=== PATIENT | male | born 1955 | race Caucasian/White ===

== ENCOUNTER 2019-09-30 21:37 | Emergency (ER) | payer BC, SELFPAY | END 2019-10-01 00:20 | disposition home or self-care (01) | PROVIDERS: Emergency Provider Family Medicine; Family Provider Family Medicine; Visit Provider Family Medicine | DX: J44.1 Chronic obstructive pulmonary disease with (acute) exacerbation (principal); F17.210 Nicotine dependence, cigarettes, uncomplicated ==

== ENCOUNTER → 2022-10-16 12:30 | Outpatient (BNVA) | payer BC, SELFPAY | PROVIDERS: Family Provider Family Medicine; PCP Family Medicine; Visit Provider Family Medicine | DX: I10 Essential (primary) hypertension (principal); R35.1 Nocturia | CPT/HCPCS: 80053; 80061; 84153 ==

== ENCOUNTER 2022-12-23 08:44 | Emergency (ER) | payer MEDICARE, SELFPAY ==
[2022-12-23] VITALS (8 sets, daily range): BP systolic 117–166; BP diastolic 54–85; PULSE 86–97; RESP 16–25; TEMP 37.2; O2SAT 85–93
--- NOTE | 2022-12-23 08:54 | XRR_ITS ---
PROCEDURE INFORMATION: Exam: XR Chest Exam date and time: 12/23/2022 9:09 AM Age: 67 years old Clinical indication: Shortness of breath; Additional info: Cough shortness of breath TECHNIQUE: Imaging protocol: Radiologic exam of the chest. Views: 1 view. COMPARISON: CR XR ribs RT mn 3V w [id number] 09/30/2019 10:05 PM FINDINGS: Lungs: Lungs are clear. Pleural spaces: There is no pleural effusion or pneumothorax. Heart/Mediastinum: Cardiomediastinal contours are unremarkable. Bones/joints: Bones are unremarkable. XR/XR chest 1V portable [id number] IMPRESSION: No acute findings.
--- NOTE | 2022-12-23 08:58 | ED_ITS ---
Documented by User: MAURY Sage 12/23/22 14:15 HPI - SOB/Dyspnea General: Chief Complaint: Shortness of Breath/Dyspnea Stated Complaint: SOB, Low02 at home Time Seen by Provider: 12/23/22 08:46 History of Present Illness: HPI Narrative: Mr. Rutherford is a 67-year-old man that presents to the emergency department with c omplaints of shortness of breath and cough. Patient reports onset of symptoms 12/19/2022. Patient has been managing symptoms at home with his prescribed medications that relief. His symptoms have progressively worsened and patient reports now has been febrile. He reports clear to white sputum. He denies chest pain. Denies abdominal pain, nausea vomiting or diarrhea. History includes COPD, hypertension, daily tobacco user. He is not on home oxygen. He was checking his pulse oximeter at home and reports he had a 83% oxygen saturation this morning. Here in the emergency department it is 85% Associated symptoms: Reports chest congestion, fever(s) and orthopnea; Deny abdominal pain, chest pain, dizziness, extremity pain, nausea, palpitati ons, polydipsia, polyuria or vomiting Review of Systems 2 General: Reports: 10 or more systems reviewed and unremarkable except in HPI and below Const: Reports: fever(s), chills, change in appetite and fatigue; Denies: change in weight or malaise Eyes: Denies: change in vision, eye discomfort, eye discharge or eye redness ENMT: Denies: throat pain, enlarged tonsils, odynophagia, hoarseness, ear or mastoid pain, ear discharge, change in hearing, tinnitus, nasal discharge, nasal congestion, post nasal drip or sinus pain Card: Reports: dyspnea on exertion and orthopnea; Denies: chest pain, palpitations, irregular heart rhythm, edema, swelling of feet/ankles or leg pain with exertion Resp: Reports: dyspnea, productive cough, wheezing, change in phlegm color and chest congestion; Denies: non-productive cough or stridor GI: Denies: abdominal pain, nausea, vomiting, dysphagia, diarrhea, constipation, bloating, GI cramping or hematochezia : Denies: flank pain, dysuria, urinary frequency, urinary urgency, urinary hesitancy, oliguria or hematuria Musc: Denies: neck pain, back pain, extremity pain, joint pain, joint swelling, joint redness, joint warmth or muscle weakness Skin/Breast: Denies: rash, pruritus, erythema, photosensitivity or new lesions Neuro: Denies: headache(s), numbness in extremities, weakness in extremities, sensory changes, lack of coordination, difficulty walking, frequent falls, dizziness, confusion, Slurred speech present, difficulty communicating thoughts, seizure-like activity or involuntary movements Endo: Denies: polyuria, polydipsia or tired all the time Torres/Lymph: Denies: easy bruising or easy bleeding PFSH ED PFSH: Medical History COPD (chronic obstructive pulmonary disease) Hypertension Physical Exam Const: COMMON NORMALS: no acute distress, patient oriented x3 and alert GENERAL APPEARANCE: cooperative ORIENTATION/CONSCIOUSNESS: Yes awake, Yes oriented to person, Yes oriented to place and Yes oriented to time HENMT: COMMON NORMALS: normocephalic and atraumatic HEAD & SCALP: normocephalic and atraumatic FACE & SINUS: normal facial exam MOUTH: Normal oral and palatal mucosa present THROAT: posterior oropharynx normal Eye: COMMON NORMALS: Equal, round and reactive pupils present, EOMs intact bilaterally, conjunctivae normal and no scleral icterus GENERAL EYE: appearance normal, both eyes and all related structures ALIGNMENT: Yes alignment normal PERIORBITAL: periorbital findings normal CONJUNCTIVA: Yes conjunctivae normal PUPIL: Yes Equal, round and reactive pupils present Neck/C-Spine: COMMON NORMALS: full ROM GENERAL: Yes normal visual inspection Lymph: LYMPHATIC: no lymphadenopathy noted Chest: COMMONS NORMALS: normal inspection of the chest CHEST: Yes abnormal inspection of the chest Breast/axilla inspection: Yes no chest deformity, asymmetry, normal contours, no nodules, masses, tenderness Resp: COMMON NORMALS: normal respiratory effort, No retractions and No use of accessory muscles EFFORT & INSPECTION: Yes able to speak in complete sentences, Yes symmetric chest movement, Yes tachypneic, Yes respiratory distress and Yes prolonged expiratory phase AUSCULTATION: wheezes lower bilaterally and diminished lung sounds bilateral and diffuse Cardio: COMMON NORMALS: regular rate, regular rhythm and Peripheral pulses 2+ throughout RATE: regular rate RHYTHM: regular rhythm PERIPHERAL PULSES: Peripheral pulses 2+ throughout GI: COMMON NORMALS: Normal to inspection, nondistended, normoactive bowel sounds present, Soft to palpation, non-tender and No hepatosplenomegaly present INSPECTION: Yes normal to inspection AUSCULTATION: Yes normoactive bowel sounds PALPATION: Yes Soft to palpation and Yes No hepatosplenomegaly present RECTAL EXAM: Yes deferred Extremity: COMMON NORMALS: normal to inspection GENERAL: Yes normal exam except as noted Neuro: COMMON NORMALS: patient oriented x3 SENSORIUM/ORIENTATION: Yes alert, Yes oriented to person, Yes oriented to place and Yes oriented to time CRANIAL NERVES: Yes CN normal except as noted Psych: COMMON NORMALS: mental status grossly normal, Normal thought process present, cooperative, activity/motor behavior normal, denies homicidal ideation and denies suicidal ideation THOUGHT PROCESS: Normal thought process present Skin: COMMON NORMALS: no rashes or lesions noted, no wounds and turgor normal GENERAL SKIN EXAM: no rashes or lesions noted and turgor normal Course Vital Signs: Vital signs: Vital Signs Temperature 98.9 F 12/23/22 08:54 Pulse Rate 87 12/23/22 10:24 Respiratory Rate 16 12/23/22 10:20 Blood Pressure 117/54 12/23/22 13:25 Pulse Oximetry 91 12/23/22 13:25 Oxygen Delivery Me thod 12/23/22 13:25 Oxygen Flow Rate 3 12/23/22 13:25 MDM - SOB/Dyspnea Medical Decision Making Mr. Rutherford is in the emergency department today with complaints of shortness of breath and cough. Has a history of COPD, treated with albuterol, and hypertension, treated with amlodipine. Patient has a primary physician, Dr. Aponte but does not routinely see. Patient reports symptoms began on Saturday but have progressively worsened. States cough through most of the night. Differential diagnoses include pneumonia, COVID-pneumonia, influenza, COPD exacerbation. Laboratory studies, EKG, chest x-ray have all been ordered Respiratory therapy has been consulted for DuoNeb treatments and oxygen management He has been treated with Solu-Medrol 125 mg. EKG shows normal sinus rhythm with borderline left axis deviation. Ventricular rate 89 beats a minute without ectopy or ST elevation. Care was assumed by Dr. Benson Lab Data 12/23/22 09:00 12/23/22 09:00 Labs/Radiology: Radiology Impressions Chest X-Ray 12/23/22 08:54 IMPRESSION: No acute findings. Laboratory Results WBC 6.2 10^3/uL (4.0-10.0) 12/23/22 09:00 RBC 6.10 10^6/uL (4.1-5.3) H 12/23/22 09:00 Hgb 19.0 g/dL (11.7-16.6) H 12/23/22 09:00 Hct 57.6 % (42.0-52.0) H 12/23/22 09:00 MCV 94.4 fl (80-94) H 12/23/22 09:00 MCH 31.1 pg (28.0-34.0) 12/23/22 09:00 MCHC 33.0 g/dL (30.0-36.0) 12/23/22 09:00 RDW 12.7 % (12.1-15.1) 12/23/22 09:00 Plt Count 114 10^3/cmm (130-400) L 12/23/22 09:00 MPV 12.2 fL (7.4-10.4) H 12/23/22 09:00 Neut % (Auto) 63.7 % 12/23/22 09:00 Lymph % (Auto) 20.3 % 12/23/22 09:00 Ripley % (Auto) 14.2 % 12/23/22 09:00 Eos % (Auto) 0.5 % 12/23/22 09:00 Baso % (Auto) 1.0 % 12/23/22 09:00 Neut # (Auto) 3.96 10^3/uL (1.8-7.7) 12/23/22 09:00 Lymph # (Auto) 1.3 10^3/uL (0.8-4.8) 12/23/22 09:00 Ripley # (Auto) 0.9 10^3/uL (0.2-0.9) 12/23/22 09:00 Eos # (Auto) 0.0 10^3/uL (0.0-0.8) 12/23/22 09:00 Baso # (Auto) 0.1 10^3/uL (0.0-0.1) 12/23/22 09:00 Nucleated RBC % (auto) 0 % 12/23/22 09:00 Nucleated RBCs # 0.0 /100WBC 12/23/22 09:00 D-Dimer 0.38 ug/mIFEU (0-0.59) 12/23/22 09:00 Specimen Type Arterial 12/23/22 09:16 Sample Site Radial, left 12/23/22 09:16 ABG pH 7.38 (7.35-7.45) 12/23/22 09:16 ABG pCO2 40.6 mmHg (35-45) 12/23/22 09:16 ABG pO2 65.6 mmHg (80.0-100.0) L 12/23/22 09:16 ABG HCO3 23.9 mmol/L (22-26) 12/23/22 09:16 ABG Base Excess -1.3 mmol/L (-2.0-2.0) 12/23/22 09:16 Sean Test Pos 12/23/22 09:16 Hematocrit 55.7 % (42-52) H 12/23/22 09:16 O2 Delivery Device Nc 12/23/22 09:16 O2 Liters/Min 3.0 % 12/23/22 09:16 Director Of Marketing ID Cak 12/23/22 09:16 Sodium 139 mmol/L (136-145) 12/23/22 09:00 Potassium 4.1 mmol/L (3.5-5.1) 12/23/22 09:00 Chloride 101 mmol/L (98-107) 12/23/22 09:00 Carbon Dioxide 23 mmol/L (22-29) 12/23/22 09:00 Anion Gap 19.1 (5-19) H 12/23/22 09:00 BUN 8 mg/dL (8-23) 12/23/22 09:00 Creatinine 1.0 mg/dL (0.7-1.2) 12/23/22 09:00 GFR Calculation 74.1 mL/min (90-130) L 12/23/22 09:00 Glucose 95 mg/dL (65-115) 12/23/22 09:00 Calculated Osmolality 286 mOsm/kg (285-295) 12/23/22 09:00 Calcium 9.4 mg/dL (8.5-10.5) 12/23/22 09:00 Total Bilirubin 0.7 mg/dL (0.15-1.2) 12/23/22 09:00 AST 26 U/L (0-40) 12/23/22 09:00 ALT 15 U/L (0-41) 12/23/22 09:00 Alkaline Phosphatase 64 U/L (40-130) 12/23/22 09:00 Troponin T Baseline 21 ng/L (0-15) H 12/23/22 09:00 Troponin T 120 Minute 16.97 ng/L (0-15) H 12/23/22 10:50 Delta Troponin T -4.03 ABS# (0-10) L 12/23/22 10:50 NT-Pro-B Natriuret Pep 40 pg/mL (0-125) 12/23/22 09:00 Total Protein 8.0 g/dL (6.6-8.7) 12/23/22 09:00 Albumin 4.6 g/dL (3.5-5.2) 12/23/22 09:00 Globulin 3.4 g/dL (1.3-4.6) 12/23/22 09:00 Influenza Type A Ag negative (Negative) 12/23/22 09:20 Influenza Type B Ag negative (Negative) 12/23/22 09:20 SARS-CoV-2 Ag (Rapid) negative (Negative) 12/23/22 09:20 Discharge Plan Discharge Patient Disposition: Home Clinical Impression: Acute exacerbation of chronic obstructive airways disease Condition: Stable Prescriptions: New albuterol sulfate 2.5 mg /3 mL (0.083 %) solution for nebulization 2.5 mg INHALATION Q4H PRN (Reason: shortness of breath or wheezing) Qty: 90 0RF prednisone 50 mg tablet 50 mg PO DAILY Qty: 5 0RF albuterol sulfate 90 mcg/actuation HFA aerosol inhaler 2 inh INHALATION Q6H PRN (Reason: shortness of breath or wheezing) Qty: 8 0RF No Action amlodipine 5 mg tablet 5 mg PO DAILY Qty: 30 11RF albuterol sulfate 2.5 mg /3 mL (0.083 %) solution for nebulization 2.5 mg continuous nebulization TID PRN (Reason: shortness of breath or whe ezing) Qty: 180 12RF Discharge Orders: Discharge ED (Routine); Ordered 12/23/22 Ordered By: Jane Benson Other Ambulatory Orders: DME: Oxygen (Order) Location: None Selected Ordered By: Jane Benson Referrals: Dewayne Aponte MD [Primary Care Provider] - 1-3 days Discharge Diet: Advance as tolerated Discharge Activity: Resume usual activity Patient Instructions: COPD (Chronic Obstructive Pulmonary Disease) (ED) Coding Level of Care Code ED Corporate Giving Manager for Chg Fwd Documented by User: Jane Benson MD 12/23/22 11:32 HPI - SOB/Dyspnea General: Chief Complaint: Shortness of Breath/Dyspnea Stated Complaint: SOB, Low02 at home Time Seen by Provider: 12/23/22 08:46 PFSH ED PFSH: Medical History COPD (chronic obstructive pulmonary disease) Hypertension Course Vital Signs: Vital signs: Vital Signs Temperature 98.9 F 12/23/22 08:54 Pulse Rate 87 12/23/22 10:24 Respiratory Rate 16 12/23/22 10:20 Blood Pressure 117/54 12/23/22 13:25 Pulse Oximetry 91 12/23/22 13:25 Oxygen Delivery Me thod 12/23/22 13:25 Oxygen Flow Rate 3 12/23/22 13:25 MDM - SOB/Dyspnea Medical Decision Making Mr. Rutherford is in the emergency department today with complaints of shortness of breath and cough. Has a history of COPD, treated with albuterol, and hypertension, treated with amlodipine. Patient has a primary physician, Dr. Aponte but does not routinely see. Patient reports symptoms began on Saturday but have progressively worsened. States cough through most of the night. Differential diagnoses include pneumonia, COVID-pneumonia, influenza, COPD exacerbation. Laboratory studies, EKG, chest x-ray have all been ordered Respiratory therapy has been consulted for DuoNeb treatments and oxygen management He has been treated with Solu-Medrol 125 mg. EKG shows normal sinus rhythm with borderline left axis deviation. Ventricular rate 89 beats a minute without ectopy, ST elevation Chest x-ray Patient presented here with COPD exacerbation he feels much improved after breathing treatments his lung sounds are clear currently he has been told the past that he may need home oxygen in the future I did offer him admission as he is requiring 3 L here he states that he he wants to go home did get him set up with home oxygen [address] him on steroids he has albuterol at home he is to follow-up with his PCP and return if worsening. Lab Data 12/23/22 09:00 12/23/22 09:00 Labs/Radiology: Radiology Impressions Chest X-Ray 12/23/22 08:54 IMPRESSION: No acute findings. Laboratory Results WBC 6.2 10^3/uL (4.0-10.0) 12/23/22 09:00 RBC 6.10 10^6/uL (4.1-5.3) H 12/23/22 09:00 Hgb 19.0 g/dL (11.7-16.6) H 12/23/22 09:00 Hct 57.6 % (42.0-52.0) H 12/23/22 09:00 MCV 94.4 fl (80-94) H 12/23/22 09:00 MCH 31.1 pg (28.0-34.0) 12/23/22 09:00 MCHC 33.0 g/dL (30.0-36.0) 12/23/22 09:00 RDW 12.7 % (12.1-15.1) 12/23/22 09:00 Plt Count 114 10^3/cmm (130-400) L 12/23/22 09:00 MPV 12.2 fL (7.4-10.4) H 12/23/22 09:00 Neut % (Auto) 63.7 % 12/23/22 09:00 Lymph % (Auto) 20.3 % 12/23/22 09:00 Ripley % (Auto) 14.2 % 12/23/22 09:00 Eos % (Auto) 0.5 % 12/23/22 09:00 Baso % (Auto) 1.0 % 12/23/22 09:00 Neut # (Auto) 3.96 10^3/uL (1.8-7.7) 12/23/22 09:00 Lymph # (Auto) 1.3 10^3/uL (0.8-4.8) 12/23/22 09:00 Ripley # (Auto) 0.9 10^3/uL (0.2-0.9) 12/23/22 09:00 Eos # (Auto) 0.0 10^3/uL (0.0-0.8) 12/23/22 09:00 Baso # (Auto) 0.1 10^3/uL (0.0-0.1) 12/23/22 09:00 Nucleated RBC % (auto) 0 % 12/23/22 09:00 Nucleated RBCs # 0.0 /100WBC 12/23/22 09:00 D-Dimer 0.38 ug/mIFEU (0-0.59) 12/23/22 09:00 Specimen Type Arterial 12/23/22 09:16 Sample Site Radial, left 12/23/22 09:16 ABG pH 7.38 (7.35-7.45) 12/23/22 09:16 ABG pCO2 40.6 mmHg (35-45) 12/23/22 09:16 ABG pO2 65.6 mmHg (80.0-100.0) L 12/23/22 09:16 ABG HCO3 23.9 mmol/L (22-26) 12/23/22 09:16 ABG Base Excess -1.3 mmol/L (-2.0-2.0) 12/23/22 09:16 Sean Test Pos 12/23/22 09:16 Hematocrit 55.7 % (42-52) H 12/23/22 09:16 O2 Delivery Device Nc 12/23/22 09:16 O2 Liters/Min 3.0 % 12/23/22 09:16 Director Of Marketing ID Cak 12/23/22 09:16 Sodium 139 mmol/L (136-145) 12/23/22 09:00 Potassium 4.1 mmol/L (3.5-5.1) 12/23/22 09:00 Chloride 101 mmol/L (98-107) 12/23/22 09:00 Carbon Dioxide 23 mmol/L (22-29) 12/23/22 09:00 Anion Gap 19.1 (5-19) H 12/23/22 09:00 BUN 8 mg/dL (8-23) 12/23/22 09:00 Creatinine 1.0 mg/dL (0.7-1.2) 12/23/22 09:00 GFR Calculation 74.1 mL/min (90-130) L 12/23/22 09:00 Glucose 95 mg/dL (65-115) 12/23/22 09:00 Calculated Osmolality 286 mOsm/kg (285-295) 12/23/22 09:00 Calcium 9.4 mg/dL (8.5-10.5) 12/23/22 09:00 Total Bilirubin 0.7 mg/dL (0.15-1.2) 12/23/22 09:00 AST 26 U/L (0-40) 12/23/22 09:00 ALT 15 U/L (0-41) 12/23/22 09:00 Alkaline Phosphatase 64 U/L (40-130) 12/23/22 09:00 Troponin T Baseline 21 ng/L (0-15) H 12/23/22 09:00 Troponin T 120 Minute 16.97 ng/L (0-15) H 12/23/22 10:50 Delta Troponin T -4.03 ABS# (0-10) L 12/23/22 10:50 NT-Pro-B Natriuret Pep 40 pg/mL (0-125) 12/23/22 09:00 Total Protein 8.0 g/dL (6.6-8.7) 12/23/22 09:00 Albumin 4.6 g/dL (3.5-5.2) 12/23/22 09:00 Globulin 3.4 g/dL (1.3-4.6) 12/23/22 09:00 Influenza Type A Ag negative (Negative) 12/23/22 09:20 Influenza Type B Ag negative (Negative) 12/23/22 09:20 SARS-CoV-2 Ag (Rapid) negative (Negative) 12/23/22 09:20 Discharge Plan Discharge Patient Disposition: Home Clinical Impression: Acute exacerbation of chronic obstructive airways disease Condition: Stable Prescriptions: New albuterol sulfate 2.5 mg /3 mL (0.083 %) solution for nebulization 2.5 mg INHALATION Q4H PRN (Reason: shortness of breath or wheezing) Qty: 90 0RF prednisone 50 mg tablet 50 mg PO DAILY Qty: 5 0RF albuterol sulfate 90 mcg/actuation HFA aerosol inhaler 2 inh INHALATION Q6H PRN (Reason: shortness of breath or wheezing) Qty: 8 0RF No Action amlodipine 5 mg tablet 5 mg PO DAILY Qty: 30 11RF albuterol sulfate 2.5 mg /3 mL (0.083 %) solution for nebulization 2.5 mg continuous nebulization TID PRN (Reason: shortness of breath or wheezing) Qty: 180 12RF Discharge Orders: Discharge ED (Routine); Ordered 12/23/22 Ordered By: Jane Benson Other Ambulatory Orders: DME: Oxygen (Order) Location: None Selected Ordered By: Jane Benson Referrals: Dewayne Aponte MD [Primary Care Provider] - 1-3 days Discharge Diet: Advance as tolerated Discharge Activity: Resume usual activity Patient Instructions: COPD (Chronic Obstructive Pulmonary Disease) (ED) Coding Level of Care Code ED Corporate Giving Manager for Marcos Resendiz
--- NOTE | 2022-12-23 09:01 | ECG_ITS ---
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
[2022-12-23 09:11] LABS: Basophils # 0.1 10^3/uL (0.0-0.1); Eosinophils % 0.5 %; Hematocrit 57.6 % (42.0-52.0); Lymphocytes # 1.3 10^3/uL (0.8-4.8); Lymphocytes % 20.3 %; Mean Corpuscular Hemoglobin 31.1 pg (28.0-34.0); Mean Corpuscular Volume 94.4 fl (80-94); Mean Platelet Volume 12.2 fL (7.4-10.4); Monocytes # 0.9 10^3/uL (0.2-0.9); Monocytes % 14.2 %; Neutrophils # 3.96 10^3/uL (1.8-7.7); Neutrophils % 63.7 %; Nucleated Red Blood Cells % 0 %; Platelet Count 114 10^3/cmm (130-400); Red Cell Distribution Width 12.7 % (12.1-15.1); White Blood Count 6.2 10^3/uL (4.0-10.0)
[2022-12-23] MEDS: ipratropium-albuterol 3 mL Neb INHALATION ×2 (09:15→10:22)
[2022-12-23] MEDS: sodium chloride 0.9% 500 ML 999 ML IV (09:16)
[2022-12-23 09:27] LABS: ABG PCO2 40.6 mmHg (35-45); ABG PH Result 7.38 (7.35-7.45); Arterial Blood Gas Hematocrit 55.7 % (42-52); Base Excess ABG -1.3 mmol/L (-2.0-2.0); Blood Gas Allen Test Pos; Blood Gas Operator Identificat CAK; Blood Gas Sample Site Radial, left; Blood Gas Sample Type Arterial; HCO3 ABG 23.9 mmol/L (22-26); Oxygen Device NC; PO2 ABG 65.6 mmHg (80.0-100.0)
[2022-12-23 09:29] LABS: Troponin(5th) Baseline 21 ng/L (0-15)
[2022-12-23 09:57] LABS: D Dimer 0.38 ug/mIFEU (0-0.59)
[2022-12-23 09:58] LABS: Alanine Aminotransferase 15 U/L (0-41); Albumin Level 4.6 g/dL (3.5-5.2); Alkaline Phosphatase 64 U/L (40-130); Anion Gap 19.1 (5-19); Aspartate Amino Transferase 26 U/L (0-40); Blood Urea Nitrogen 8 mg/dL (8-23); Calcium 9.4 mg/dL (8.5-10.5); Carbon Dioxide 23 mmol/L (22-29); Chloride 101 mmol/L (98-107); Globulin 3.4 g/dL (1.3-4.6); Glomerular Filtration Rate 74.1 mL/min (90-130); Glucose 95 mg/dL (65-115); NT Pro B Type Natriuretic Pept 40 pg/mL (0-125); Osmolality Calculated 286 mOsm/kg (285-295); Potassium 4.1 mmol/L (3.5-5.1); Sodium 139 mmol/L (136-145); Total Bilirubin 0.7 mg/dL (0.15-1.2)
[2022-12-23 10:12] LABS: SARS Covid-2 Antigen negative (Negative)
[2022-12-23 10:45] LABS: Influenza A by IFA negative (Negative); Influenza B by IFA negative (Negative)
--- NOTE | 2022-12-23 11:08 | ECG_ITS ---
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
[2022-12-23 11:22] LABS: Troponin 5 2HR 16.97 ng/L (0-15)
[2022-12-23 11:25] LABS: Troponin 5 2HR Delta -4.03 ABS# (0-10)
== END 2022-12-23 13:57 | disposition home or self-care (01) ==
PROVIDERS: Nurse Practitioner; Emergency Provider Emergency Medicine; PCP Family Medicine
DX: J44.1 Chronic obstructive pulmonary disease with (acute) exacerbation (principal); Z20.822 Contact with and (suspected) exposure to COVID-19; I10 Essential (primary) hypertension
CPT/HCPCS: 36600; 71045; 80053; 82803; 83880; 84484; 85025; 85378; 87426; 87804; 93005; 94640; 96361; 96374; 99285; J2930; J7040

== ENCOUNTER 2023-12-30 07:47 | Inpatient (IN) | payer MEDICARE, SELFPAY ==
[2023-12-30] VITALS (17 sets, daily range): BP systolic 119–161; BP diastolic 67–89; PULSE 68–106; RESP 16–36; TEMP 36.3–38.4; O2SAT 86–94; BMI 26.7
--- NOTE | 2023-12-30 07:49 | ECG_ITS ---
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 Measurements Intervals [place] Rate: 101 P: 75 ME: 142 QRS: -34 QRSD: 95 T: 68 QT: 312 QTc: 405 Interpretive Statements SINUS TACHYCARDIA LEFT AXIS DEVIATION [QRS AXIS < -30] Compared to ECG 12/23/2022 11:08:22 Left-axis deviation now present Sinus rhythm no longer present Indeterminate axis no longer present Electronically Signed On 12-30-2023 11:25:42 CDT by Fabrice Doyle M.D. [id number]
--- NOTE | 2023-12-30 08:01 | XRR_ITS ---
PROCEDURE INFORMATION: Exam: XR Chest Exam date and time: 12/30/2023 8:14 AM Age: 68 years old Clinical indication: Cough and dyspnea; Additional info: Dyspnea/cough TECHNIQUE: Imaging protocol: Radiologic exam of the chest. Views: 1 view. COMPARISON: CR XR chest 1V portable [id number] 12/23/2022 9:09 AM FINDINGS: Lungs: Left lower lung linear atelectasis versus scarring. No consolidation. Pleural spaces: Unremarkable. No pleural effusion. No pneumothorax. Heart/Mediastinum: Unremarkable. No cardiomegaly. Bones/joints: Mild degenerative changes along the spine and acromioclavicular joints. XR/XR chest 1V portable [id number] IMPRESSION: No acute findings.
--- NOTE | 2023-12-30 08:03 | ED_ITS ---
HPI - SOB/Dyspnea 2 General: Chief Complaint: Shortness of Breath/Dyspnea Stated Complaint: sob Time Seen by Provider: 12/30/23 07:47 Source: patient Mode of arrival: ambulatory History of Present Illness: HPI Narrative: 68-year-old male presents emergency room complaining 2 days of progressively worsening shortness of breath and productive cough. Patient is a lifelong smoker although because of the recent illness he has cut down some. MD elicited complaint: shortness of breath and cough Pertinent past history: COPD Associated symptoms: Deny abdominal pain, chest pain or fever(s) Review of Systems 2 Const: Denies: fever(s) or chills Card: Denies: chest pain Resp: Denies: dyspnea GI: Denies: abdominal pain : Denies: dysuria, urinary frequency or urinary urgency Musc: Denies: neck pain or back pain Skin/Breast: Denies: rash PFSH ED 2 PFSH: Medical History Hypertension COPD (chronic obstructive pulmonary disease) Social History (Updated 12/30/23 @ 11:11 by Tiago Prince MD) Smoking and tobacco/nicotine status: former use of tobacco/nicotine Alcohol intake: never Physical Exam 2 Const: COMMON NORMALS: no acute distress GENERAL APPEARANCE: cooperative and comfortable ORIENTATION/CONSCIOUSNESS: Yes awake, Yes oriented to person, Yes oriented to place and Yes oriented to time HENMT: COMMON NORMALS: normocephalic, atraumatic and hearing grossly normal bilaterally HEAD & SCALP: normocephalic and atraumatic Resp: COMMON NORMALS: normal respiratory effort, No retractions, No use of accessory muscles and clear to auscultation bilaterally AUSCULTATION: clear to auscultation bilaterally Cardio: COMMON NORMALS: regular rate, regular rhythm and No murmurs present (Cardio) RATE: regular rate RHYTHM: regular rhythm GI: COMMON NORMALS: Soft to palpation and No hepatosplenomegaly present A USCULTATION: Yes normoactive bowel sounds PALPATION: Yes Soft to palpation, No Tenderness to palpation present (GI), No Guarding due to palpation present (GI) and Yes No hepatosplenomegaly present Extremity: COMMON NORMALS: normal to inspection, capillary refill normal, no clubbing, cyanosis or edema, no calf tenderness and no pedal edema Neuro: SENSORIUM/ORIENTATION: Yes oriented to person, Yes oriented to place and Yes oriented to time Skin: COMMON NORMALS: no rashes or lesions noted GENERAL SKIN EXAM: no rashes or lesions noted Course 2 Vital Signs: Vital signs: Vital Signs Temperature 97.3 F L 12/30/23 16:00 Pulse Rate 70 12/30/23 16:00 Respiratory Rate 18 12/30/23 16:00 Blood Pressure 119/69 12/30/23 16:00 Pulse Oximetry 88 L 12/30/23 16:00 Oxygen Delivery Me thod Room Air 12/30/23 15:21 Oxygen Flow Rate 3 12/30/23 11:20 MDM - SOB/Dyspnea Medical Decision Making Acute exacerbation COPD with influenza. Aggressive pulmonary toilet start influenza. Troponin mildly elevated discussed with hospitalist orders written Differential Diagnosis Likely acute exacerbation of chronic obstructive airways disease Medical Records I reviewed the patient's medical records. Lab Data I reviewed the patient's lab results. 12/30/23 08:00 12/30/23 08:00 Labs/Radiology: Radiology Impressions Chest X-Ray 12/30/23 08:01 IMPRESSION: No acute findings. Laboratory Results WBC 8.92 10^3/uL (3.29-11.43) 12/30/23 08:00 RBC 5.50 10^6/uL (3.85-5.65) 12/30/23 08:00 Hgb 17.50 g/dL (11.27-16.99) H 12/30/23 08:00 Hct 51.8 % (37-53) 12/30/23 08:00 MCV 94.2 fl (82-101) 12/30/23 08:00 MCH 31.8 pg (27-33) 12/30/23 08:00 MCHC 33.8 g/dL (30-55) 12/30/23 08:00 RDW 12.9 % (12.1-15.1) 12/30/23 08:00 Plt Count 135 10^3/cmm (157-399) L 12/30/23 08:00 MPV 12.1 fL (7.4-10.4) H 12/30/23 08:00 Neut % (Auto) 73.0 % 12/30/23 08:00 Lymph % (Auto) 12.4 % 12/30/23 08:00 Bertie % (Auto) 14.1 % 12/30/23 08:00 Eos % (Auto) 0.0 % 12/30/23 08:00 Baso % (Auto) 0.2 % 12/30/23 08:00 Neut # (Auto) 6.50 10^3/uL (1.8-7.7) 12/30/23 08:00 Lymph # (Auto) 1.1 10^3/uL (0.8-4.8) 12/30/23 08:00 Bertie # (Auto) 1.3 10^3/uL (0.2-0.9) H 12/30/23 08:00 Eos # (Auto) 0.0 10^3/uL (0.0-0.8) 12/30/23 08:00 Baso # (Auto) 0.0 10^3/uL (0.0-0.1) 12/30/23 08:00 Nucleated RBC % (auto) 0 % 12/30/23 08:00 Nucleated RBCs # 0.0 /100WBC 12/30/23 08:00 Specimen Type Arterial 12/30/23 08:16 Sample Site Radial, right 12/30/23 08:16 ABG pH 7.42 (7.35-7.45) 12/30/23 08:16 ABG pCO2 38.0 mmHg (35-45) 12/30/23 08:16 ABG pO2 51.3 mmHg (80.0-100.0) L 12/30/23 08:16 ABG HCO3 24.6 mmol/L (22-26) 12/30/23 08:16 ABG O2 Saturation 89.1 12/30/23 08:16 ABG Base Excess 0.4 mmol/L (-2.0-2.0) 12/30/23 08:16 Sean Test Pos 12/30/23 08:16 A-a O2 Gradient 6.4 mmHg (5-10) 12/30/23 08:16 Hematocrit 52.2 % (42-52) H 12/30/23 08:16 Hgb O2 Saturation 85.8 % (95-100) L 12/30/23 08:16 Carboxyhemoglobin 3.0 %THgb (0.4-20.1) 12/30/23 08:16 Methemoglobin 0.6 % (0.4-1.5) 12/30/23 08:16 Total Hemoglobin 17.0 g/dL (14-18) 12/30/23 08:16 Sodium 136.0 mmol/L (131-143) 12/30/23 08:16 Potassium 3.8 mmol/L (3.5-5.0) 12/30/23 08:16 Glucose 98.0 mg/dL (70-115) 12/30/23 08:16 Ionized Calcium 1.1 mmol/L (1.1-1.4) 12/30/23 08:16 O2 Delivery Device Nc 12/30/23 08:16 O2 Liters/Min 2.0 % 12/30/23 08:16 Physical Chemist ID Walci 12/30/23 08:16 Sodium 135 mmol/L (136-145) L 12/30/23 08:00 Potassium 4.1 mmol/L (3.5-5.1) 12/30/23 08:00 Chloride 100 mmol/L (98-107) 12/30/23 08:00 Carbon Dioxide 23 mmol/L (22-29) 12/30/23 08:00 Anion Gap 16.1 (5-19) 12/30/23 08:00 BUN 11 mg/dL (8-23) 12/30/23 08:00 Creatinine 1.0 mg/dL (0.7-1.2) 12/30/23 08:00 GFR Calculation 73.9 mL/min (90-130) L 12/30/23 08:00 Glucose 99 mg/dL (65-115) 12/30/23 08:00 Calculated Osmolality 279 mOsm/kg (285-295) L 12/30/23 08:00 Lactic Acid 1.2 mmol/L (0.5-2.2) 12/30/23 08:00 Calcium 8.8 mg/dL (8.5-10.5) 12/30/23 08:00 Total Bilirubin 0.6 mg/dL (0.15-1.2) 12/30/23 08:00 AST 26 U/L (0-40) 12/30/23 08:00 ALT 13 U/L (0-41) 12/30/23 08:00 Alkaline Phosphatase 59 U/L (40-130) 12/30/23 08:00 Troponin T Baseline 42 ng/L (0-15) H 12/30/23 08:00 Troponin T 120 Minute 32.34 ng/L (0-15) H 12/30/23 10:02 Delta Troponin T -9.66 ABS# (0-10) L 12/30/23 10:02 Total Protein 7.1 g/dL (6.6-8.7) 12/30/23 08:00 Albumin 4.4 g/dL (3.5-5.2) 12/30/23 08:00 Globulin 2.7 g/dL (1.3-4.6) 12/30/23 08:00 Coronavirus 229E (PCR) Not detected (NOT DETECT) 12/30/23 08:35 Influenza A (H1) PCR Cancelled 12/30/23 10:43 Influ A (H1/09) PCR Cancelled 12/30/23 10:43 Influenza A (H3) PCR Cancelled 12/30/23 10:43 Influenza Type A Ag positive (Negative) H 12/30/23 08:35 Influenza Type A (PCR) Cancelled 12/30/23 10:43 Influenza Type B Ag negative (Negative) 12/30/23 08:35 Influenza Type B (PCR) Cancelled 12/30/23 10:43 SARS-CoV-2 (PCR) Not detected (NOT DETECT) 12/30/23 08:35 All radiology interpretation(s) finalized by discharge Discharge Plan Discharge Patient Disposition: Admitted As Inpatient Admit Provider: Tiago Prince Clinical Impression: COPD (chronic obstructive pulmonary disease), Influenza A, Elevated troponin, Hypertension Condition: Stable Coding Level of Care Code ED Child Study Team Director for Marcos Resendiz
[2023-12-30 08:18] LABS: Basophils % 0.2 %; Hematocrit 51.8 % (37-53); Lymphocytes # 1.1 10^3/uL (0.8-4.8); Lymphocytes % 12.4 %; Mean Corpuscular HGB Conc 33.8 g/dL (30-55); Mean Corpuscular Hemoglobin 31.8 pg (27-33); Mean Corpuscular Volume 94.2 fl (82-101); Mean Platelet Volume 12.1 fL (7.4-10.4); Monocytes # 1.3 10^3/uL (0.2-0.9); Monocytes % 14.1 %; Nucleated Red Blood Cells % 0 %; Platelet Count 135 10^3/cmm (157-399); Red Cell Distribution Width 12.9 % (12.1-15.1); White Blood Count 8.92 10^3/uL (3.29-11.43)
[2023-12-30] MEDS: ipratropium-albuterol 3 mL Neb INHALATION ×4 (08:18→20:42)
[2023-12-30 08:27] LABS: ABG PH Result 7.42 (7.35-7.45); Alveolar-Arterial Oxygen Gradi 6.4 mmHg (5-10); Arterial Blood Gas Hematocrit 52.2 % (42-52); Base Excess ABG 0.4 mmol/L (-2.0-2.0); Blood Gas Allen Test Pos; Blood Gas Operator Identificat WALCI; Blood Gas Sample Site Radial, right; Blood Gas Sample Type Arterial; HCO3 ABG 24.6 mmol/L (22-26); HGB O2 Sat 85.8 % (95-100); Ionized Calcium Level - ABG 1.1 mmol/L (1.1-1.4); Methemoglobin 0.6 % (0.4-1.5); Oxygen Device NC; Oxygen Saturation ABG 89.1; PO2 ABG 51.3 mmHg (80.0-100.0); Potassium Level - ABG 3.8 mmol/L (3.5-5.0)
[2023-12-30 08:30] LABS: Alanine Aminotransferase 13 U/L (0-41); Albumin Level 4.4 g/dL (3.5-5.2); Alkaline Phosphatase 59 U/L (40-130); Aspartate Amino Transferase 26 U/L (0-40); Blood Urea Nitrogen 11 mg/dL (8-23); Calcium 8.8 mg/dL (8.5-10.5); Carbon Dioxide 23 mmol/L (22-29); Chloride 100 mmol/L (98-107); Creatinine Clr Calc Pharmacy 75.2169; Globulin 2.7 g/dL (1.3-4.6); Glomerular Filtration Rate 73.9 mL/min (90-130); Glucose 99 mg/dL (65-115); Osmolality Calculated 279 mOsm/kg (285-295); Sodium 135 mmol/L (136-145); Total Bilirubin 0.6 mg/dL (0.15-1.2); Total Protein 7.1 g/dL (6.6-8.7)
[2023-12-30 08:31] LABS: Lactic Sepsis W/Reflex 1.2 mmol/L (0.5-2.2); Troponin(5th) Baseline 42 ng/L (0-15)
[2023-12-30 08:33] LABS: Anion Gap 16.1 (5-19); Potassium 4.1 mmol/L (3.5-5.1)
[2023-12-30] MEDS: dexamethasone 10 mg/mL INJ IM (08:40)
[2023-12-30] MEDS: cefTRIAXone 1,000 MG in sodium chloride 0.9% (plus) 50 ML 100 MG IV (08:40)
[2023-12-30 09:04] LABS: Influenza A by IFA positive (Negative); Influenza B by IFA negative (Negative)
--- NOTE | 2023-12-30 10:07 | ECG_ITS ---
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 Measurements Intervals [place] Rate: 90 P: -3 IA: 142 QRS: -16 QRSD: 102 T: 63 QT: 345 QTc: 424 Interpretive Statements SINUS RHYTHM Compared to ECG 12/30/2023 07:49:18 Sinus tachycardia no longer present Left-axis deviation no longer present Electronically Signed On 12-30-2023 11:26:03 CDT by Fabrice Doyle M.D. [id number]
[2023-12-30] MEDS: azithromycin 500 MG in sodium chloride 0.9% 250 ML 250 MG IV (10:09)
[2023-12-30 10:29] LABS: Troponin 5 2HR 32.34 ng/L (0-15)
[2023-12-30 10:31] LABS: Troponin 5 2HR Delta -9.66 ABS# (0-10)
[2023-12-30 10:39] LABS: Adenovirus Not Detected (NOT DETECT); Chlamydia Pneumoniae Not Detected (NOT DETECT); Coronavirus 229E,HKU1,NL63,OC4 Not Detected (NOT DETECT); Human Metapneumovirus Not Detected (NOT DETECT); Human Rhinovirus/Enterovirus Not Detected (NOT DETECT); Influenza A Detected (NOT DETECT); Influenza A H1 Not Detected (NOT DETECT); Influenza A H1-2009 Not Detected (NOT DETECT); Influenza A H3 Detected (NOT DETECT); Influenza B Not Detected (NOT DETECT); Mycoplasma Pneumoniae Not Detected (NOT DETECT); Parainfluenza Virus Type 1 Not Detected (NOT DETECT); Parainfluenza Virus Type 2 Not Detected (NOT DETECT); Parainfluenza Virus Type 3 Not Detected (NOT DETECT); Parainfluenza Virus Type 4 Not Detected (NOT DETECT); Respiratory Syncytial Virus A Not Detected (NOT DETECT); Respiratory Syncytial Virus B Not Detected (NOT DETECT); SARS-COV-2 Not Detected (NOT DETECT)
--- NOTE | 2023-12-30 10:43 | P.HP_ITS ---
Documented by User: ILENE Nice STDNAEEM 12/30/23 11:38 Providers/Chief Complaint 2 Primary Care Provider: Dewayne Aponte MD Chief Complaint: sob History of Present Illness Benoit Rutherford is a 68 year old male with past medical history of hypertension, and COPD presents to the emergency department with below listed complaints. Patient presents to the emergency department today for chief complaint of shortness of breath. Mr. Rutherford stated last he started having difficulty breathing. He reported that he is feeling short of breath at rest and had even more difficulty breathing with exertion. To attempt to alleviate the shortness of breath he would use his at home albuterol and limit his exertion. He reported that this did not give him any relief. Patient stated that he began monitoring his oxygen at home with a finger pulse ox. This morning his oxygen dropped down to 84% and so he came to the emergency department. He does not wear oxygen at home, currently on 2 L nasal cannula stating 90%. He was noted to have a fever on admission of 101.1F, but was not sure if he had any fever at home. While in the Emergency department patient received decadron 10mg IM, azithromycin 500 mg IV, Rocephin 1000mg IV. Blood cultures, Covid PCR, Flu PCR, EKG, Troponin were obtained. Sputum culture ordered. Patient to be transferred to Medical Surgical floor for further monitoring of Influenza A. Review of Systems 2 Const: Reports: fever(s) and fatigue Eyes: Denies: change in vision, blurry vision, eye discharge, eye redness or dry eyes ENMT: Denies: throat pain, enlarged tonsils, odynophagia, mouth pain, ear or mastoid pain or ear discharge Card: Denies: chest pain, palpitations, irregular heart rhythm, lightheadedness or syncope Resp: Reports: dyspnea, productive cough, wheezing and change in phlegm color GI: Reports: nausea; Denies: vomiting, dysphagia, diarrhea, constipation or change in bowel habits : Denies: difficulty urinating, dysuria, urinary frequency or oliguria Musc: Reports: muscle weakness; Denies: neck pain, back pain, extremity pain or extremity swelling Skin/Breast: Denies: rash, pruritus, erythema or sores Neuro: Denies: headache(s) or numbness in extremities Medications/Allergies Home Medications Medication Instructions Recorded Confirmed Last Taken Type albuterol sulfate 2.5 mg/3 mL 2.5 mg (3 mL) inhalation Q4H PRN 12/23/22 12/30/23 12/30/23 Rx (0.083 %) solution for nebulization shortness of breath or wheezing #90 mL Allergies Allergy/AdvReac Type Severity Reaction Status Date / Time No Known Allergies Allergy Verified 05/21/22 14:04 PFSH Acute 2 PFSH: Medical History Hypertension COPD (chronic obstructive pulmonary disease) Social History (Updated 12/30/23 @ 11:11 by Tiago Prince MD) Smoking and tobacco/nicotine status: former use of tobacco/nicotine Alcohol intake: never Vitals/I&O/Wt Last Vital Signs Temp 101.1 F H 12/30/23 07:54 Pulse 95 12/30/23 10:00 Resp 18 12/30/23 10:00 BP 121/73 12/30/23 10:33 Pulse Ox 91 12/30/23 10:33 O2 Del Method Nasal Cannula 12/30/23 10:33 O2 Flow Rate 2 12/30/23 10:33 12/29/23 12/30/23 12/30/23 22:59 06:59 14:59 Intake Total 50 / 50 Balance 50 / 50 Weight last 48 hrs Weight 185 lb Physical Exam 2 Narrative: General exam is a white male, on 2 L NC. HEENT: Atraumatic normocephalic. Oropharynx clear. Neck is supple, no lymphadenopathy thyromegaly Cardiovascular currently regular, occasional premature beat, no murmur Lungs sounds noted to have expiratory wheezes. Reports coughing up yellow- green thick sputum. . Abdomen is soft, non-tender with positive bowel sounds. exams deferred Extremities trace edema lower legs, cap refill brisk. Skin no rash Neuro no obvious focal deficits Data 12/30/23 08:00 12/30/23 08:00 Micro: Microbiology 12/30/23 08:32 Blood Culture - Preliminary Blood SPECIMEN COLLECTED 12/30/23 08:28 Blood Culture - Preliminary Blood SPECIMEN COLLECTED A&P Assessment and plan (1) Hypoxia: Secondary to influenza A Currently on 2 L nasal cannula, continue to supplement with oxygen, titrate as needed. Obtain sputum sample Douneb Q4 HR (2) COPD with acute exacerbation: Supplement oxygen as needed 60mg IVP solumedrol starting 1800 tonight Douneb Q4 HR (3) Influenza A: Tamiflu 75mg BID Doxycycline 100mg PO Isolation precaution PRN breathing treatments Supplement oxygen Encourage activity Blood cultures pending. (4) Elevated troponin: May be secondary to Influenza A and difficulty breathing Cardiac monitoring Plan Lovenox DVT prophylaxis Code Status: AND Coding Level of Care Code 14476 Diagnoses Hypoxia R09.02 COPD with acute exacerbation J44.1 Influenza A J10.1 Elevated troponin R79.89 Time Spent (min) 54 Documented by User: Tiago Prince MD 12/30/23 11:43 Providers/Chief Complaint 2 Admitting Physician: Tiago Prince MD Chief Complaint: sob History of Present Illness Benoit Rutherford is a 68 year old male with past medical history of hypertension, and COPD presents to the emergency department with below listed complaints. Patient presents to the emergency department today for chief complaint of shortness of breath. Mr. Rutherford stated last he started having difficulty breathing. He reported that he is feeling short of breath at rest and had even more difficulty breathing with exertion. To attempt to alleviate the shortness of breath he would use his at home albuterol and limit his exertion. He reported that this did not give him any relief. Patient stated that he began monitoring his oxygen at home with a finger pulse ox. This morning his oxygen dropped down to 84% and so he came to the emergency department. He does not wear oxygen at home, currently on 2 L nasal cannula stating 90%. He was noted to have a fever on admission of 101.1F, but was not sure if he had any fever at home. He denies any chest discomfort. While in the Emergency department patient received decadron 10mg IM, azithromycin 500 mg IV, Rocephin 1000mg IV. Blood cultures, Covid PCR, Flu PCR, EKG, Troponin were obtained. Sputum culture ordered. Patient to be transferred to Medical Surgical floor for further monitoring of Influenza A. Medications/Allergies Home Medications Medication Instructions Recorded Confirmed Last Taken Type albuterol sulfate 2.5 mg/3 mL 2.5 mg (3 mL) inhalation Q4H PRN 12/23/22 12/30/23 12/30/23 Rx (0.083 %) solution for nebulization shortness of breath or wheezing #90 mL Allergies Allergy/AdvReac Type Severity Reaction Status Date / Time No Known Allergies Allergy Verified 05/21/22 14:04 PFSH Acute 2 PFSH: Medical History Hypertension COPD (chronic obstructive pulmonary disease) Social History (Updated 12/30/23 @ 11:11 by Tiago Prince MD) Smoking and tobacco/nicotine status: former use of tobacco/nicotine Alcohol intake: never Data 12/30/23 08:00 12/30/23 08:00 Other Labs: ABG demonstrates pH 7.42, pCO2 38, pO2 51 mg 2 L of oxygen CMP reviewed. LFTs are normal Troponin 42 with repeat of 32 Influenza A is positive. COVID is negative Chest x-ray reviewed by me no infiltrate EKG reviewed by me demonstrates sinus rhythm, slight tachycardia with 101 as the right. Left axis deviation is noted. No other concerning changes. A&P Assessment and plan (1) Hypoxia: Secondary to influenza A Currently on 2 L nasal cannula, continue to supplement with oxygen, titrate as needed. Obtain sputum sample Douneb Q4 HR (2) COPD with acute exacerbation: Supplement oxygen as needed 60mg IVP solumedrol starting 1800 tonight Douneb Q4 HR Budesonide twice daily (3) Influenza A: Tamiflu 75mg BID Doxycycline 100mg PO BID, concern with superimposed bronchitis Isolation precaution PRN breathing treatments Supplement oxygen Encourage activity Blood cultures pending. (4) Elevated troponin: May be secondary to Influenza A Cardiac monitoring Trend troponins Appears to be a type II elevation Aspirin 81 mg daily Attestations 2 Medical Necessity Statement*: Will go to the [facility] started for evaluation and treatment of acute COPD exacerbation with significant hypoxia Diagnoses Hypoxia R09.02 COPD with acute exacerbation J44.1 Influenza A J10.1 Elevated troponin R79.89 Time Spent (min) 54
[2023-12-30] MEDS: enoxaparin 40 mg/0.4 mL Syringe SUBCUT (11:53)
[2023-12-30] MEDS: acetaminophen 325 mg Tablet 650 MG PO (11:54)
[2023-12-30] MEDS: oseltamivir phosphate 75 mg Capsule PO ×2 (11:54→17:32)
[2023-12-30 12:50] LABS: Bilirubin Urine Neg (Negative); Blood Urine 2+ (Negative); Glucose Urine UA Norm (Normal); Ketones Urine Negative (Negative); Leukocyte Esterase Urine Negative (Negative); Nitrate Urine Negative (Negative); Protein Urine Neg (Negative); Urine Appearance Clear (CLEAR); Urine Color Yellow (Yellow); Urobilinogen Urine 1 mg/dL (Negative); pH Urine 5 (5-7)
[2023-12-30 12:51] LABS: Add Urine Culture? No; Bacteria Urine TRACE /hpf; Mucus Urine 2+ /hpf; RBC Urine 0-4 /hpf (0-2); Squamous Epithelial Cell Urine 0-4 /hpf (0-5); WBC Urine 0-4 /hpf (0-5)
--- NOTE | 2023-12-30 14:02 | ECG_ITS ---
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 Measurements Intervals [place] Rate: 73 P: 9 VT: 156 QRS: 15 QRSD: 106 T: 64 QT: 384 QTc: 425 Interpretive Statements SINUS RHYTHM Compared to ECG 12/30/2023 10:07:29 No significant changes Electronically Signed On 12-30-2023 21:53:34 CDT by Fabrice Doyle M.D. [id number]
[2023-12-30 15:39] LABS: Troponin 5 6HR 19.93 ng/L (0-15)
[2023-12-30 15:41] LABS: Troponin 5 6HR Delta -22.07 ng/L (0-12)
[2023-12-30] MEDS: methylPREDNISolone sod succ 125 mg/2 mL INJ 60 MG IVP (17:30)
[2023-12-30] MEDS: doxycycline 100 mg Tablet PO (17:32)
[2023-12-30] MEDS: budesonide 0.5 mg/2 mL Neb INHALATION (20:43)
[2023-12-31] VITALS (16 sets, daily range): BP systolic 106–168; BP diastolic 64–73; PULSE 65–96; RESP 16–20; TEMP 36.3–36.6; O2SAT 89–94; BMI 26.4
[2023-12-31] MEDS: ipratropium-albuterol 3 mL Neb INHALATION ×7 (00:12→23:54)
[2023-12-31 05:59] LABS: Basophils % 0.1 %; Hematocrit 50.4 % (37-53); Lymphocytes # 0.9 10^3/uL (0.8-4.8); Lymphocytes % 7.6 %; Mean Corpuscular HGB Conc 34.1 g/dL (30-55); Mean Corpuscular Hemoglobin 32.1 pg (27-33); Mean Platelet Volume 12.1 fL (7.4-10.4); Monocytes # 0.7 10^3/uL (0.2-0.9); Monocytes % 6.3 %; Neutrophils # 9.71 10^3/uL (1.8-7.7); Neutrophils % 85.5 %; Nucleated Red Blood Cells % 0 %; Platelet Count 133 10^3/cmm (157-399); Red Blood Count 5.36 10^6/uL (3.85-5.65); Red Cell Distribution Width 12.6 % (12.1-15.1); White Blood Count 11.36 10^3/uL (3.29-11.43)
[2023-12-31 06:20] LABS: Alanine Aminotransferase 14 U/L (0-41); Albumin Level 3.8 g/dL (3.5-5.2); Alkaline Phosphatase 48 U/L (40-130); Anion Gap 17.2 (5-19); Aspartate Amino Transferase 25 U/L (0-40); Blood Urea Nitrogen 17 mg/dL (8-23); Calcium 8.7 mg/dL (8.5-10.5); Carbon Dioxide 20 mmol/L (22-29); Chloride 105 mmol/L (98-107); Creatinine Clr Calc Pharmacy 80.8487; Globulin 3.3 g/dL (1.3-4.6); Glomerular Filtration Rate 83.4 mL/min (90-130); Glucose 139 mg/dL (65-115); Osmolality Calculated 290 mOsm/kg (285-295); Potassium 4.2 mmol/L (3.5-5.1); Sodium 138 mmol/L (136-145); Total Bilirubin 0.3 mg/dL (0.15-1.2); Total Protein 7.1 g/dL (6.6-8.7)
--- NOTE | 2023-12-31 07:24 | USCV_ITS ---
Benoit Rutherford Age: 68 Gender: M : 1955 Exam Date: 12/31/2023 10:54 Ordering Phys: Tiago Prince MD Technologist: Exam Location: [facility] [place] Indication: sob BP: 134 / 74 HR: 88 Rhythm: Sinus Technical Quality: Technically difficult study MEASUREMENTS (Male / Female) Normal Values 2D ECHO LVOT Diameter 2.0 cm LA Diameter 3.5 cm RA Systolic Volume 4C AL 28.6 ml RA Systolic Volume 4C MOD 27.4 ml Aorta at Sinotubular Diameter 3.2 cm DOPPLER AV Peak Velocity 128.0 cm/s LVOT Peak Velocity 118.0 cm/s AV Area Cont Eq vti 3.1 cm squared AV Area Cont Eq pk 3.0 cm squared MV Peak Velocity 83.0 cm/s MV Area PHT 3.4 cm squared Mitral E to A Ratio 1.0 PV Peak Velocity 106.0 cm/s FINDINGS Left Ventricle Normal left ventricular size and systolic function, EF 65% . Mild left ventricular hypertrophy. No regional wall motion abnormalities. Right Ventricle Possibly normal RV size and ejection fraction Right Atrium Right atrium could not be visualized well Left Atrium Normal left atrial size. Mitral Valve Trace mitral valve regurgitation. Aortic Valve No gross abnormalities noted Tricuspid Valve No gross abnormalities noted Pulmonic Valve Pulmonic valve not well visualized. Pericardium Trivial pericardial effusion. Aorta Normal ascending aorta dimension. IVC Inferior vena cava not visualized. CONCLUSIONS Normal left ventricular size and systolic function, EF 65% . Mild left ventricular hypertrophy. No regional wall motion abnormalities. Trace mitral valve regurgitation. Trivial pericardial effusion. Compared to the previous study from 10/10/2013, there may not be significant change Dr Chu Linda MD [facility] (Electronically Signed) Final Date: 31 December 2023 18:53 S
[2023-12-31] MEDS: budesonide 0.5 mg/2 mL Neb INHALATION ×2 (07:44→19:41)
[2023-12-31] MEDS: doxycycline 100 mg Tablet PO ×2 (09:17→17:22)
[2023-12-31] MEDS: oseltamivir phosphate 75 mg Capsule PO ×2 (09:17→17:23)
[2023-12-31] MEDS: aspirin 81 mg EC Tablet PO (09:17)
--- NOTE | 2023-12-31 10:21 | PC.CHAP ---
Pastoral Care Encounter/Spiritual Assessment Type of Contact [] Declined operator catalyst concentration visit [] Patient/Family/Request visit [] Outpatient visit [] Follow-up visit [] Physician referral [] Code/Alert [] Routine visit [] Staff referral [] Actively dying [] Patient sleeping [] Family support [] [] Out of room [] Palliative care [] [] Receiving care in room [] Pre-surgical visit [] Trauma [] Long length of stay [] ICU visit [x] Other:Contact precautions. No visit. Relational/Emotional Strength [] Patient feels connected with others/family/visitors/staff [] Distress [] Loneliness/isolation [] Abandonment Spirituality of Patient [] Person of Maira [] Attends Protestant of their Maira [] Believes in Prayer [] Reads Bible or Buddhism materials [] There are Spiritual issues to be addressed Timber Deadener Interventions [] Prayer [] Active listening [] Non-anxious presence [] Spiritual/emotional support [] Crisis/trauma care [] Spiritual counseling [] Bereavement support [] Provided bereavement packet [] Provided Bible/devotional materials [] Provided toy/stuffed animal, coloring book to patient or family member [] Provided Communion [] Anointing/[place] [] Salvation [] Completed spiritual assessment [] Other: Impact on Illness or Injury [] Angry [] Fearful [] Anxious [] Often cries [] Exhaustion [] Unable to work [] Unable to attend gnosticism [] Unable to walk/stand [] Unable to read [] Unable to drive [] Unable to eat/drink [] Unable to sleep [] Unable to be with family [] Patient intubated [] Other: Summary Time spent with patient
[2023-12-31] MEDS: predniSONE 20 mg Tablet 40 MG PO (10:29)
[2023-12-31] MEDS: enoxaparin 40 mg/0.4 mL Syringe SUBCUT (11:40)
--- NOTE | 2023-12-31 12:43 | P.PN_ITS ---
Documented by User: ILENE Nice STDNAEEM 12/31/23 13:12 Subjective 2 Subjective: Patient resting in bed on 4 L nasal cannula, noted to be at bedside. Patient states that he feels better despite needing more oxygen than yesterday. We attempted to titrate oxygen down for possible discharge this afternoon, with ambulation patient still required to 4 L nasal cannula. Mr. Rutherford agreed to stay overnight for further treatment of influenza A. Medications: Reviewed: Yes Vitals/I&O/Wt Last Vital Signs Temp 97.5 F L 12/31/23 03:37 Pulse 69 12/31/23 11:13 Resp 16 12/31/23 11:13 BP 168/73 12/31/23 11:17 Pulse Ox 89 L 12/31/23 11:13 O2 Del Method Nasal Cannula 12/31/23 11:13 O2 Flow Rate 3 12/31/23 11:13 12/30/23 12/31/23 12/31/23 22:59 06:59 14:59 Intake Total 240 / 780 150 / 930 Output Total 775 / 1100 200 / 1300 Balance -535 / -320 -50 / -370 Weight last 48 hrs Weight 178 lb 11.2 oz Weight 181 lb 3.2 oz Weight 185 lb Physical Exam 2 Narrative: General exam is a white male, on 4 L NC. No apparent distress. Neck is supple, no lymphadenopathy thyromegaly Cardiovascular currently regular, occasional premature beat, no murmur Lungs sounds noted to be diminished on auscultation. Continues to cough up yellow- green thick sputum. . Abdomen is soft, non-tender with positive bowel sounds. Extremities trace edema lower legs, cap refill brisk. Data 12/31/23 05:44 12/31/23 05:44 Micro: Microbiology 12/30/23 16:00 Gram Stain - Final Sputum - Expectorated Sputum Sputum Culture - Preliminary 12/30/23 08:28 Blood Culture - Preliminary Blood NEGATIVE TO DATE 12/30/23 08:32 Blood Culture - Preliminary Blood NEGATIVE TO DATE A&P Assessment and plan (1) Hypoxia: Secondary to influenza A Currently on 4 L nasal cannula, continue to supplement with oxygen, titrate as needed. Sputum culture preliminary results of day 1 is few normal veronika on day 1 Douneb Q4 HR (2) COPD with acute exacerbation: Supplement oxygen as needed Substitute IVP solumedrol with Predisone 40mg PO starting now Douneb Q4 HR Budesonide twice daily (3) Influenza A: Continue Tamiflu 75mg BID Continue Doxycycline 100mg PO BID, concern with superimposed bronchitis Isolation precaution PRN breathing treatments Supplement oxygen Encourage activity Blood cultures pending. (4) Elevated troponin: May be secondary to Influenza A Cardiac monitoring Troponin baseline 42, Troponin 120min 32.34 on 12/30/23 Appears to be a type II elevation Aspirin 81 mg daily Echo ordered and pending. Plan Lovenox DVT prophylaxis Code Status: AND Coding Level of Care Code 23416 Diagnoses Hypoxia R09.02 COPD with acute exacerbation J44.1 Influenza A J10.1 Elevated troponin R79.89 Time Spent (min) 21 Documented by User: Tiago Prince MD 12/31/23 13:18 Data 12/31/23 05:44 12/31/23 05:44 A&P Assessment and plan (1) Hypoxia: (2) COPD with acute exacerbation: (3) Influenza A: (4) Elevated troponin: Attestations 2 Medical Necessity Statement*: Needs continued hospital stay for frequent breathing treatments in this patient with influenza and severe COPD exacerbation requiring 4 L of oxygen Diagnoses Hypoxia R09.02 COPD with acute exacerbation J44.1 Influenza A J10.1 Elevated troponin R79.89 Time Spent (min) 21
--- NOTE | 2023-12-31 17:14 | PC.NURSE ---
Sent a picture of Cardiac monitoring of Afib to Dr. Prince
[2024-01-01] VITALS (10 sets, daily range): BP systolic 126–165; BP diastolic 67–82; PULSE 61–79; RESP 16–18; TEMP 36.3–36.5; O2SAT 86–93; BMI 24.3
[2024-01-01] MEDS: ipratropium-albuterol 3 mL Neb INHALATION ×2 (04:54→08:54)
[2024-01-01 05:48] LABS: Basophils % 0.2 %; Hematocrit 51.6 % (37-53); Lymphocytes % 15.9 %; Mean Corpuscular HGB Conc 33.9 g/dL (30-55); Mean Corpuscular Volume 94.3 fl (82-101); Mean Platelet Volume 12.3 fL (7.4-10.4); Monocytes # 0.8 10^3/uL (0.2-0.9); Monocytes % 6.2 %; Neutrophils # 9.86 10^3/uL (1.8-7.7); Neutrophils % 77.3 %; Nucleated Red Blood Cells % 0 %; Platelet Count 146 10^3/cmm (157-399); Red Blood Count 5.47 10^6/uL (3.85-5.65); Red Cell Distribution Width 12.7 % (12.1-15.1); White Blood Count 12.74 10^3/uL (3.29-11.43)
[2024-01-01 06:09] LABS: Anion Gap 14.9 (5-19); Blood Urea Nitrogen 19 mg/dL (8-23); Calcium 8.7 mg/dL (8.5-10.5); Carbon Dioxide 23 mmol/L (22-29); Chloride 106 mmol/L (98-107); Creatinine Clr Calc Pharmacy 90.7137; Glomerular Filtration Rate 95.6 mL/min (90-130); Glucose 90 mg/dL (65-115); Osmolality Calculated 292 mOsm/kg (285-295); Potassium 3.9 mmol/L (3.5-5.1); Sodium 140 mmol/L (136-145)
--- NOTE | 2024-01-01 08:44 | PM.DCS ---
Discharge Providers Date of Admission: 12/30/23 11:09 Date of Discharge: January 01, 2024 Attending Provider at Admission: Tiago Prince MD Attending Provider at Discharge: Tiago Prince MD Primary Care Provider: Dewayne Aponte MD Diagnoses at Discharge Discharge Diagnosis (1) Hypoxia: Status: Acute (2) COPD with acute exacerbation: Status: Acute (3) Influenza A: Status: Acute (4) Elevated troponin: Status: Acute Reason for Visit Reason for Visit: sob Discharge Data Studies Completed and Pending Completed Studies During Hospitalization Category Date Time Status XR chest 1V portable [id number] Stat Exams 12/30/23 08:01 Completed CV. echo complete* [id number] Routine Ultrasound 12/31/23 07:24 Completed Pending at discharge Category Date Time Status Blood Culture Stat Lab 12/30/23 08:32 Results Sputum Culture and Gram Stain Stat Lab 12/30/23 16:00 Results Radiology Impressions Chest X-Ray 12/30/23 08:01 IMPRESSION: No acute findings. Laboratory Results WBC 12.74 10^3/uL (3.29-11.43) H 01/01/24 05:15 RBC 5.47 10^6/uL (3.85-5.65) 01/01/24 05:15 Hgb 17.50 g/dL (11.27-16.99) H 01/01/24 05:15 Hct 51.6 % (37-53) 01/01/24 05:15 MCV 94.3 fl (82-101) 01/01/24 05:15 MCH 32.0 pg (27-33) 01/01/24 05:15 MCHC 33.9 g/dL (30-55) 01/01/24 05:15 RDW 12.7 % (12.1-15.1) 01/01/24 05:15 Plt Count 146 10^3/cmm (157-399) L 01/01/24 05:15 MPV 12.3 fL (7.4-10.4) H 01/01/24 05:15 Neut % (Auto) 77.3 % 01/01/24 05:15 Lymph % (Auto) 15.9 % 01/01/24 05:15 [place] % (Auto) 6.2 % 01/01/24 05:15 Eos % (Auto) 0.0 % 01/01/24 05:15 Baso % (Auto) 0.2 % 01/01/24 05:15 Neut # (Auto) 9.86 10^3/uL (1.8-7.7) H 01/01/24 05:15 Lymph # (Auto) 2.0 10^3/uL (0.8-4.8) 01/01/24 05:15 [place] # (Auto) 0.8 10^3/uL (0.2-0.9) 01/01/24 05:15 Eos # (Auto) 0.0 10^3/uL (0.0-0.8) 01/01/24 05:15 Baso # (Auto) 0.0 10^3/uL (0.0-0.1) 01/01/24 05:15 Nucleated RBC % (auto) 0 % 01/01/24 05:15 Nucleated RBCs # 0.0 /100WBC 01/01/24 05:15 Specimen Type Arterial 12/30/23 08:16 Sample Site Radial, right 12/30/23 08:16 ABG pH 7.42 (7.35-7.45) 12/30/23 08:16 ABG pCO2 38.0 mmHg (35-45) 12/30/23 08:16 ABG pO2 51.3 mmHg (80.0-100.0) L 12/30/23 08:16 ABG HCO3 24.6 mmol/L (22-26) 12/30/23 08:16 ABG O2 Saturation 89.1 12/30/23 08:16 ABG Base Excess 0.4 mmol/L (-2.0-2.0) 12/30/23 08:16 Sean Test Pos 12/30/23 08:16 A-a O2 Gradient 6.4 mmHg (5-10) 12/30/23 08:16 Hematocrit 52.2 % (42-52) H 12/30/23 08:16 Hgb O2 Saturation 85.8 % (95-100) L 12/30/23 08:16 Carboxyhemoglobin 3.0 %THgb (0.4-20.1) 12/30/23 08:16 Methemoglobin 0.6 % (0.4-1.5) 12/30/23 08:16 Total Hemoglobin 17.0 g/dL (14-18) 12/30/23 08:16 Sodium 136.0 mmol/L (131-143) 12/30/23 08:16 Potassium 3.8 mmol/L (3.5-5.0) 12/30/23 08:16 Glucose 98.0 mg/dL (70-115) 12/30/23 08:16 Ionized Calcium 1.1 mmol/L (1.1-1.4) 12/30/23 08:16 O2 Delivery Device Nc 12/30/23 08:16 O2 Liters/Min 2.0 % 12/30/23 08:16 Electrical Mechanical Technician ID Walci 12/30/23 08:16 Sodium 140 mmol/L (136-145) 01/01/24 05:15 Potassium 3.9 mmol/L (3.5-5.1) 01/01/24 05:15 Chloride 106 mmol/L (98-107) 01/01/24 05:15 Carbon Dioxide 23 mmol/L (22-29) 01/01/24 05:15 Anion Gap 14.9 (5-19) 01/01/24 05:15 BUN 19 mg/dL (8-23) 01/01/24 05:15 Creatinine 0.8 mg/dL (0.7-1.2) 01/01/24 05:15 GFR Calculation 95.6 mL/min (90-130) 01/01/24 05:15 Glucose 90 mg/dL (65-115) 01/01/24 05:15 Calculated Osmolality 292 mOsm/kg (285-295) 01/01/24 05:15 Lactic Acid 1.2 mmol/L (0.5-2.2) 12/30/23 08:00 Calcium 8.7 mg/dL (8.5-10.5) 01/01/24 05:15 Total Bilirubin 0.3 mg/dL (0.15-1.2) 12/31/23 05:44 AST 25 U/L (0-40) 12/31/23 05:44 ALT 14 U/L (0-41) 12/31/23 05:44 Alkaline Phosphatase 48 U/L (40-130) 12/31/23 05:44 Troponin T Baseline 42 ng/L (0-15) H 12/30/23 08:00 Troponin T 120 Minute 32.34 ng/L (0-15) H 12/30/23 10:02 Delta Troponin T -9.66 ABS# (0-10) L 12/30/23 10:02 Troponin T Hi Sens 6Hr 19.93 ng/L (0-15) H 12/30/23 14:58 Troponin T Hi Sens 6Hr Delta -22.07 ng/L (0-12) L 12/30/23 14:58 Total Protein 7.1 g/dL (6.6-8.7) 12/31/23 05:44 Albumin 3.8 g/dL (3.5-5.2) 12/31/23 05:44 Globulin 3.3 g/dL (1.3-4.6) 12/31/23 05:44 Urine Color Yellow (Yellow) 12/30/23 12:00 Urine Appearance Clear (CLEAR) 12/30/23 12:00 Urine pH 5 (5-7) 12/30/23 12:00 Ur Specific [place] 1.020 (1.005-1.030) 12/30/23 12:00 Urine Protein Neg (Negative) 12/30/23 12:00 Urine Glucose (UA) Norm (Normal) 12/30/23 12:00 Urine Ketones Negative (Negative) 12/30/23 12:00 Urine Blood 2+ (Negative) H 12/30/23 12:00 Urine Nitrate Negative (Negative) 12/30/23 12:00 Urine Bilirubin Neg (Negative) 12/30/23 12:00 Urine Urobilinogen 1 mg/dL (Negative) H 12/30/23 12:00 Ur Leukocyte Esterase Negative (Negative) 12/30/23 12:00 Urine RBC 0-4 /hpf (0-2) H 12/30/23 12:00 Urine WBC 0-4 /hpf (0-5) H 12/30/23 12:00 Ur Squamous Epith Cells 0-4 /hpf (0-5) H 12/30/23 12:00 Amorphous Sediment Not Reportable 12/30/23 12:00 Urine Bacteria Trace /hpf (NONE) 12/30/23 12:00 Urine Mucus 2+ /hpf 12/30/23 12:00 Coronavirus 229E (PCR) Not detected (NOT DETECT) 12/30/23 08:35 Influenza A (H1) PCR Cancelled 12/30/23 10:43 Influ A (H1/09) PCR Cancelled 12/30/23 10:43 Influenza A (H3) PCR Cancelled 12/30/23 10:43 Influenza Type A Ag positive (Negative) H 12/30/23 08:35 Influenza Type A (PCR) Cancelled 12/30/23 10:43 Influenza Type B Ag negative (Negative) 12/30/23 08:35 Influenza Type B (PCR) Cancelled 12/30/23 10:43 SARS-CoV-2 (PCR) Not detected (NOT DETECT) 12/30/23 08:35 Vitals Last Vital Signs Temp 97.5 F L 01/01/24 07:23 Pulse 62 01/01/24 07:23 Resp 18 01/01/24 07:23 BP 165/82 01/01/24 07:23 Pulse Ox 92 01/01/24 07:23 O2 Del Method Nasal Cannula 01/01/24 07:23 O2 Flow Rate 3 01/01/24 04:54 Discharge Plan Discharge Patient Disposition: Home Condition: Stable Prescriptions: New oseltamivir 75 mg Capsule 75 mg PO BID Qty: 5 0RF doxycycline monohydrate 100 mg Tablet 100 mg PO BID Qty: 10 0RF aspirin 81 mg Tablet,Delayed Release (Dr/Ec) 81 mg PO DAILY Qty: 30 0RF Trelegy Ellipta 200-62.5-25 mcg blister with device 1 inh inhalation Q24H Qty: 60 0RF prednisone 20 mg Tablet 40 mg PO DAILY Qty: 6 0RF Continued albuterol sulfate 2.5 mg /3 mL (0.083 %) solution for nebulization 2.5 mg INHALATION Q4H PRN (Reason: shortness of breath or wheezing) Qty: 90 0RF Discharge Orders: Discharge Order (Routine); Ordered 01/01/24 Ordered By: Tiago Prince Referrals: Dewayne Aponte MD [Primary Care Provider] - 4-7 days Discharge Diet: Regular Discharge Activity: Increase activity as tolerated Patient Instructions: Hypoxia (GEN), Opioid Safety, Using Oxygen at Home Activity Restrictions/Additional Instructions: Take all medicine as prescribed. Return for any concerns Stop smoking Follow-up with your primary care provider 4 to 7 days Home oxygen evaluation prior to discharge Coding Level of Care Code Acute Code for [facility] Diagnoses Hypoxia R09.02 COPD with acute exacerbation J44.1 Influenza A J10.1 Elevated troponin R79.89
[2024-01-01] MEDS: budesonide 0.5 mg/2 mL Neb INHALATION (08:53)
[2024-01-01] MEDS: oseltamivir phosphate 75 mg Capsule PO (09:14)
[2024-01-01] MEDS: aspirin 81 mg EC Tablet PO (09:14)
[2024-01-01] MEDS: predniSONE 20 mg Tablet 40 MG PO (09:15)
[2024-01-01] MEDS: doxycycline 100 mg Tablet PO (09:15)
--- NOTE | 2024-01-01 09:52 | PM.DCS ---
Documented by User: [email or web address] Nice [email or web address] 01/01/24 10:11 Discharge Providers Date of Admission: 12/30/23 11:09 Date of Discharge: January 01, 2024 Attending Provider at Admission: Tiago Prince MD Attending Provider at Discharge: Tiago Prince MD Primary Care Provider: Dewayne Aponte MD Diagnoses at Discharge Discharge Diagnosis (1) Hypoxia: Status: Acute (2) COPD with acute exacerbation: Status: Acute (3) Influenza A: Status: Acute (4) Elevated troponin: Status: Acute Reason for Visit Reason for Visit: sob Hospital Course Hospital Course Mr. Rutherford presented to the emergency department on December 30, 2023 for chief complaint of shortness of breath. He had stated this had began on December 26. Prior to admission Mr. Rutherford was using albuterol at home to help with his shortness of breath and monitoring his oxygen at home with a finger pulse ox. He stated his oxygen got down to 84% which brought him to the hospital. It was noted that he also had a temperature of 101.1 on admission. He was placed on 2 L nasal cannula on admission, he stated he did not require oxygen prior. Although, patient has a history of using oxygen in the past, about 2 years ago. While being evaluated in the emergency department Mr. Rutherford flu swab come back positive for influenza A and also had slightly elevated troponins. Due to the new requirement of oxygen and elevated troponins we admitted Mr. Rutherford to the medical surgical floor for further monitoring and treatment. Patient was treated with oxygen supplementation, Tamiflu, steroids, and p.o. antibiotic of doxycycline 100 mg twice daily. Chest x-ray did not demonstrate pneumonia. An echocardiogram was ordered due to the elevated troponins, echocardiogram was unremarkable. Elevated troponin could be due to increased work of breathing secondary to influenza A. Patient states he feels overall better, more energetic, and easier time breathing despite needing 3 L nasal cannula. He was very eager to go home, reporting he had used oxygen before and felt comfortable with this. Risks and benefits were discussed, and he was discharged home with medications as listed below. He will follow-up with his primary care provider in 4 to 7 days. He was given an opportunity to ask questions, and agreed with the plan. He was started on aspirin at discharge secondary to the mild increase in troponin, most likely representing a type II elevation considering his hypoxia, influenza and COPD exacerbation. Echocardiogram did not demonstrate any wall motion abnormalities, making coronary disease less likely. This could be followed up for outpatient should primary care provider see fit. Physical Exam Narrative: General exam is a white male, on 3 L NC. No apparent distress. Neck is supple, no lymphadenopathy thyromegaly Cardiovascular currently regular, occasional premature beat, no murmur Lungs sounds noted to be diminished on auscultation. Continues to cough up yellow- green thick sputum. . Abdomen is soft, non-tender with positive bowel sounds. Extremities trace edema lower legs, cap refill brisk. Discharge Data Studies Completed and Pending Completed Studies During Hospitalization Category Date Time Status XR chest 1V portable [id number] Stat Exams 12/30/23 08:01 Completed CV. echo complete* [id number] Routine Ultrasound 12/31/23 07:24 Completed Pending at discharge Category Date Time Status Blood Culture Stat Lab 12/30/23 08:32 Results Sputum Culture and Gram Stain Stat Lab 12/30/23 16:00 Results Radiology Impressions Chest X-Ray 12/30/23 08:01 IMPRESSION: No acute findings. Laboratory Results WBC 12.74 10^3/uL (3.29-11.43) H 01/01/24 05:15 RBC 5.47 10^6/uL (3.85-5.65) 01/01/24 05:15 Hgb 17.50 g/dL (11.27-16.99) H 01/01/24 05:15 Hct 51.6 % (37-53) 01/01/24 05:15 MCV 94.3 fl (82-101) 01/01/24 05:15 MCH 32.0 pg (27-33) 01/01/24 05:15 MCHC 33.9 g/dL (30-55) 01/01/24 05:15 RDW 12.7 % (12.1-15.1) 01/01/24 05:15 Plt Count 146 10^3/cmm (157-399) L 01/01/24 05:15 MPV 12.3 fL (7.4-10.4) H 01/01/24 05:15 Neut % (Auto) 77.3 % 01/01/24 05:15 Lymph % (Auto) 15.9 % 01/01/24 05:15 [place] % (Auto) 6.2 % 01/01/24 05:15 Eos % (Auto) 0.0 % 01/01/24 05:15 Baso % (Auto) 0.2 % 01/01/24 05:15 Neut # (Auto) 9.86 10^3/uL (1.8-7.7) H 01/01/24 05:15 Lymph # (Auto) 2.0 10^3/uL (0.8-4.8) 01/01/24 05:15 [place] # (Auto) 0.8 10^3/uL (0.2-0.9) 01/01/24 05:15 Eos # (Auto) 0.0 10^3/uL (0.0-0.8) 01/01/24 05:15 Baso # (Auto) 0.0 10^3/uL (0.0-0.1) 01/01/24 05:15 Nucleated RBC % (auto) 0 % 01/01/24 05:15 Nucleated RBCs # 0.0 /100WBC 01/01/24 05:15 Specimen Type Arterial 12/30/23 08:16 Sample Site Radial, right 12/30/23 08:16 ABG pH 7.42 (7.35-7.45) 12/30/23 08:16 ABG pCO2 38.0 mmHg (35-45) 12/30/23 08:16 ABG pO2 51.3 mmHg (80.0-100.0) L 12/30/23 08:16 ABG HCO3 24.6 mmol/L (22-26) 12/30/23 08:16 ABG O2 Saturation 89.1 12/30/23 08:16 ABG Base Excess 0.4 mmol/L (-2.0-2.0) 12/30/23 08:16 Sean Test Pos 12/30/23 08:16 A-a O2 Gradient 6.4 mmHg (5-10) 12/30/23 08:16 Hematocrit 52.2 % (42-52) H 12/30/23 08:16 Hgb O2 Saturation 85.8 % (95-100) L 12/30/23 08:16 Carboxyhemoglobin 3.0 %THgb (0.4-20.1) 12/30/23 08:16 Methemoglobin 0.6 % (0.4-1.5) 12/30/23 08:16 Total Hemoglobin 17.0 g/dL (14-18) 12/30/23 08:16 Sodium 136.0 mmol/L (131-143) 12/30/23 08:16 Potassium 3.8 mmol/L (3.5-5.0) 12/30/23 08:16 Glucose 98.0 mg/dL (70-115) 12/30/23 08:16 Ionized Calcium 1.1 mmol/L (1.1-1.4) 12/30/23 08:16 O2 Delivery Device Nc 12/30/23 08:16 O2 Liters/Min 2.0 % 12/30/23 08:16 Cafeteria Monitor ID Walci 12/30/23 08:16 Sodium 140 mmol/L (136-145) 01/01/24 05:15 Potassium 3.9 mmol/L (3.5-5.1) 01/01/24 05:15 Chloride 106 mmol/L (98-107) 01/01/24 05:15 Carbon Dioxide 23 mmol/L (22-29) 01/01/24 05:15 Anion Gap 14.9 (5-19) 01/01/24 05:15 BUN 19 mg/dL (8-23) 01/01/24 05:15 Creatinine 0.8 mg/dL (0.7-1.2) 01/01/24 05:15 GFR Calculation 95.6 mL/min (90-130) 01/01/24 05:15 Glucose 90 mg/dL (65-115) 01/01/24 05:15 Calculated Osmolality 292 mOsm/kg (285-295) 01/01/24 05:15 Lactic Acid 1.2 mmol/L (0.5-2.2) 12/30/23 08:00 Calcium 8.7 mg/dL (8.5-10.5) 01/01/24 05:15 Total Bilirubin 0.3 mg/dL (0.15-1.2) 12/31/23 05:44 AST 25 U/L (0-40) 12/31/23 05:44 ALT 14 U/L (0-41) 12/31/23 05:44 Alkaline Phosphatase 48 U/L (40-130) 12/31/23 05:44 Troponin T Baseline 42 ng/L (0-15) H 12/30/23 08:00 Troponin T 120 Minute 32.34 ng/L (0-15) H 12/30/23 10:02 Delta Troponin T -9.66 ABS# (0-10) L 12/30/23 10:02 Troponin T Hi Sens 6Hr 19.93 ng/L (0-15) H 12/30/23 14:58 Troponin T Hi Sens 6Hr Delta -22.07 ng/L (0-12) L 12/30/23 14:58 Total Protein 7.1 g/dL (6.6-8.7) 12/31/23 05:44 Albumin 3.8 g/dL (3.5-5.2) 12/31/23 05:44 Globulin 3.3 g/dL (1.3-4.6) 12/31/23 05:44 Urine Color Yellow (Yellow) 12/30/23 12:00 Urine Appearance Clear (CLEAR) 12/30/23 12:00 Urine pH 5 (5-7) 12/30/23 12:00 Ur Specific [place] 1.020 (1.005-1.030) 12/30/23 12:00 Urine Protein Neg (Negative) 12/30/23 12:00 Urine Glucose (UA) Norm (Normal) 12/30/23 12:00 Urine Ketones Negative (Negative) 12/30/23 12:00 Urine Blood 2+ (Negative) H 12/30/23 12:00 Urine Nitrate Negative (Negative) 12/30/23 12:00 Urine Bilirubin Neg (Negative) 12/30/23 12:00 Urine Urobilinogen 1 mg/dL (Negative) H 12/30/23 12:00 Ur Leukocyte Esterase Negative (Negative) 12/30/23 12:00 Urine RBC 0-4 /hpf (0-2) H 12/30/23 12:00 Urine WBC 0-4 /hpf (0-5) H 12/30/23 12:00 Ur Squamous Epith Cells 0-4 /hpf (0-5) H 12/30/23 12:00 Amorphous Sediment Not Reportable 12/30/23 12:00 Urine Bacteria Trace /hpf (NONE) 12/30/23 12:00 Urine Mucus 2+ /hpf 12/30/23 12:00 Coronavirus 229E (PCR) Not detected (NOT DETECT) 12/30/23 08:35 Influenza A (H1) PCR Cancelled 12/30/23 10:43 Influ A (H1/09) PCR Cancelled 12/30/23 10:43 Influenza A (H3) PCR Cancelled 12/30/23 10:43 Influenza Type A Ag positive (Negative) H 12/30/23 08:35 Influenza Type A (PCR) Cancelled 12/30/23 10:43 Influenza Type B Ag negative (Negative) 12/30/23 08:35 Influenza Type B (PCR) Cancelled 12/30/23 10:43 SARS-CoV-2 (PCR) Not detected (NOT DETECT) 12/30/23 08:35 Vitals Last Vital Signs Temp 97.5 F L 01/01/24 07:23 Pulse 79 01/01/24 08:58 Resp 18 01/01/24 08:58 BP 165/82 01/01/24 07:23 Pulse Ox 86 L 01/01/24 09:00 O2 Del Method Nasal Cannula 01/01/24 08:58 O2 Flow Rate 3 01/01/24 09:00 Discharge Plan Discharge Patient Disposition: Home Condition: Stable Prescriptions: New prednisone 20 mg Tablet 40 mg PO DAILY Qty: 6 0RF aspirin 81 mg Tablet,Delayed Release (Dr/Ec) 81 mg PO DAILY Qty: 30 0RF doxycycline monohydrate 100 mg Tablet 100 mg PO BID Qty: 10 0RF oseltamivir 75 mg Capsule 75 mg PO BID Qty: 5 0RF Trelegy Ellipta 200-62.5-25 mcg blister with device 1 inh inhalation Q24H Qty: 60 0RF Continued albuterol sulfate 2.5 mg /3 mL (0.083 %) solution for nebulization 2.5 mg INHALATION Q4H PRN (Reason: shortness of breath or wheezing) Qty: 90 0RF Discharge Orders: Discharge Order (Routine); Ordered 01/01/24 Ordered By: Tiago Prince Other Ambulatory Orders: DME: Oxygen (Order) Location: None Selected Ordered By: Tiago Prince Referrals: Dewayne Aponte MD [Primary Care Provider] - 01/07/24 2:20 pm Discharge Diet: Regular Discharge Activity: Increase activity as tolerated Patient Instructions: COPD, Doxycycline (By mouth), Prednisone (By mouth), Aspirin (By mouth), Oseltamivir (By mouth), Influenza (GEN), Hypoxia (GEN), COPD Stoplight, Opioid Safety, Using Oxygen at Home Activity Restrictions/Additional Instructions: Take all medicine as prescribed. Return for any concerns Stop smoking Follow-up with your primary care provider 4 to 7 days Home oxygen evaluation prior to discharge Coding Level of Care Code 14719 Diagnoses Hypoxia R09.02 COPD with acute exacerbation J44.1 Influenza A J10.1 Elevated troponin R79.89 Documented by User: Tiago Prince MD 01/01/24 10:20 Diagnoses at Discharge Discharge Diagnosis (1) Hypoxia: Status: Acute (2) COPD with acute exacerbation: Status: Acute (3) Influenza A: Status: Acute (4) Elevated troponin: Status: Acute Reason for Visit Reason for Visit: sob Hospital Course Hospital Course Mr. Rutherford presented to the emergency department on December 30, 2023 for chief complaint of shortness of breath. He had stated this had began on December 26. Prior to admission Mr. Rutherford was using albuterol at home to help with his shortness of breath and monitoring his oxygen at home with a finger pulse ox. He stated his oxygen got down to 84% which brought him to the hospital. It was noted that he also had a temperature of 101.1 on admission. He was placed on 2 L nasal cannula on admission, he stated he did not require oxygen prior. Although, patient has a history of using oxygen in the past, about 2 years ago. While being evaluated in the emergency department Mr. Rutherford flu swab come back positive for influenza A and also had slightly elevated troponins. Due to the new requirement of oxygen and elevated troponins we admitted Mr. Rutherford to the medical surgical floor for further monitoring and treatment. Patient was treated with oxygen supplementation, Tamiflu, steroids, and p.o. antibiotic of doxycycline 100 mg twice daily. Chest x-ray did not demonstrate pneumonia. An echocardiogram was ordered due to the elevated troponins, echocardiogram was unremarkable. Elevated troponin could be due to increased work of breathing secondary to influenza A. Patient states he feels overall better, more energetic, and easier time breathing despite needing 3 L nasal cannula. He was very eager to go home, reporting he had used oxygen before and felt comfortable with this. Risks and benefits were discussed, and he was discharged home with medications as listed below. He will follow-up with his primary care provider in 4 to 7 days. He was given an opportunity to ask questions, and agreed with the plan. He was started on aspirin at discharge secondary to the mild increase in troponin, most likely representing a type II elevation considering his hypoxia, influenza and COPD exacerbation. Echocardiogram did not demonstrate any wall motion abnormalities, making coronary disease less likely. This could be followed up for outpatient should primary care provider see fit. Physical Exam Narrative: General exam is a white male, on 3 L NC. No apparent distress. Neck is supple, no lymphadenopathy thyromegaly Cardiovascular currently regular, occasional premature beat, no murmur Lungs sounds clear, with diminished breath sounds bilaterally Abdomen is soft, non-tender with positive bowel sounds. Extremities trace edema lower legs, cap refill brisk. Discharge Plan Discharge Patient Disposition: Home Condition: Stable Prescriptions: New prednisone 20 mg Tablet 40 mg PO DAILY Qty: 6 0RF aspirin 81 mg Tablet,Delayed Release (Dr/Ec) 81 mg PO DAILY Qty: 30 0RF doxycycline monohydrate 100 mg Tablet 100 mg PO BID Qty: 10 0RF oseltamivir 75 mg Capsule 75 mg PO BID Qty: 5 0RF Trelegy Ellipta 200-62.5-25 mcg blister with device 1 inh inhalation Q24H Qty: 60 0RF Continued albuterol sulfate 2.5 mg /3 mL (0.083 %) solution for nebulization 2.5 mg INHALATION Q4H PRN (Reason: shortness of breath or wheezing) Qty: 90 0RF Discharge Orders: Discharge Order (Routine); Ordered 01/01/24 Ordered By: Tiago Prince Other Ambulatory Orders: DME: Oxygen (Order) Location: None Selected Ordered By: Tiago Prince Referrals: Dewayne Aponte MD [Primary Care Provider] - 01/07/24 2:20 pm Discharge Diet: Regular Discharge Activity: Increase activity as tolerated Patient Instructions: COPD, Doxycycline (By mouth), Prednisone (By mouth), Aspirin (By mouth), Oseltamivir (By mouth), Influenza (GEN), Hypoxia (GEN), COPD Stoplight, Opioid Safety, Using Oxygen at Home Activity Restrictions/Additional Instructions: Take all medicine as prescribed. Return for any concerns Stop smoking Follow-up with your primary care provider 4 to 7 days Home oxygen evaluation prior to discharge Discharge Attestations Time Spent in Discharge Care*: greater than 30 min Quality Metrics Clinical Quality Measures [ No reported AMI, CVA or VTE this stay] Coding Level of Care Code 13363 Total time (in minutes) for Discharge: 35 Diagnoses Hypoxia R09.02 COPD with acute exacerbation J44.1 Influenza A J10.1 Elevated troponin R79.89
--- NOTE | 2024-01-01 10:32 | PC.SOCIAL ---
IMM Update pg 2 of IMM updated and reviewed w/ patient. Copy provided and copy dated, initialed and placed in chart.
--- NOTE | 2024-01-01 13:59 | PC.NURSE ---
Discussed discharge, new medications, continued medications, follow up appointments as well as went over the stop light for COPD with patient. Patient verbalized understanding.
== END 2024-01-01 12:00 | disposition home or self-care (01) | DRG 190 ==
LOC: ER 08:06 → MEDSURG 11:10
PROVIDERS: Admitting Provider Internal Medicine; Emergency Provider Family Medicine; PCP Family Medicine; Visit Provider Internal Medicine
DX: J44.1 Chronic obstructive pulmonary disease with (acute) exacerbation (principal); I21.A1 Myocardial infarction type 2; J10.1 Influenza due to other identified influenza virus with other respiratory manifestations; R09.02 Hypoxemia; I10 Essential (primary) hypertension; Z11.52 Encounter for screening for COVID-19; Z87.891 Personal history of nicotine dependence; Z79.82 Long term (current) use of aspirin
CPT/HCPCS: 36415; 36600; 71045; 80048; 80051; 80053; 81001; 82330; 82805; 83605; 84484; 85025; 87040; 87070; 87205; 87635; 87804; 93005; 93306; 94640; 94760; 96365; 96367; 96372; 99285; J0456; J0696; J1100; J1650; J2930; J7050; J7512; J7626

== ENCOUNTER → 2025-04-06 14:34 | Outpatient (BNVA) | payer MEDICARE, SELFPAY | PROVIDERS: PCP Family Medicine; Visit Provider Emergency Medicine | DX: M19.031 Primary osteoarthritis, right wrist (principal) | CPT/HCPCS: 73110 ==

== ENCOUNTER → 2025-09-22 12:02 | Outpatient (BNVA) | payer MEDICARE, SELFPAY | PROVIDERS: PCP Family Medicine; Visit Provider Family Medicine | DX: I10 Essential (primary) hypertension (principal); G62.9 Polyneuropathy, unspecified; F17.200 Nicotine dependence, unspecified, uncomplicated | CPT/HCPCS: 80053; 80061; 83036; 84443; 85025; 86140 ==